=== PATIENT | female | born 1965 | race Caucasian/White ===

== ENCOUNTER 2018-08-29 08:09 | Outpatient (CLI) | payer OTHER | END 2018-08-29 08:16 | disposition home or self-care (01) | LOC: MAMO-SONO 08:09 | DX: K70.0 Alcoholic fatty liver (principal) ==

== ENCOUNTER 2022-04-16 11:09 | Outpatient (CLI) | payer OTHER | END 2022-04-16 11:10 | disposition home or self-care (01) | LOC: LAB 11:09 | PROVIDERS: ATTEND Surgery | DX: R09.02 Hypoxemia (principal) ==